=== PATIENT | female | born 1985 | race Two or more races ===

== ENCOUNTER 2018-10-23 19:55 | Emergency (ER) | payer SELFPAY ==
[~2018-10-23] VITALS: Ht 170.2 cm; Wt 107.0 kg
[2018-10-23] MEDS ORDERED: LIDOCAINE-MPF 1%, 5ML ONE (20:48)
[2018-10-23] MEDS ORDERED: LIDOCAINE 1%, 10ML INFIL ONE (21:00)
[2018-10-23 21:30] VITALS: BP 131/74
== END 2018-10-23 21:32 | disposition home or self-care (01) ==
LOC: ED 21:20
DX: L03.313 Cellulitis of chest wall (principal); L02.213 Cutaneous abscess of chest wall
CPT/HCPCS: 10060; 99283